=== PATIENT | female | born 1930 | race Caucasian/White ===

== ENCOUNTER 2020-05-23 02:55 | Inpatient (IN) | payer OTHER, MEDICARE ==
[2020-05-23 03:05] VITALS: BMI 20.5
[2020-05-23 03:50] LABS: BASO % 0.5 % (0-2.0); EOS % 0.9 % (0-4.5); HEMATOCRIT 38.7 % (32.4-45.2); HEMOGLOBIN 12.9 GM/dL (10.7-15.3); LYMPH % 11.7 % (8-40); MCH 30.2 pg (25.7-33.7); MCHC 33.4 g/dl (32.0-36.0); MEAN CELL VOLUME 90.3 fl (80-96); MEAN PLT VOLUME 7.9 fl (7.5-11.1); MONO % 5.7 % (3.8-10.2); NEUT % 81.2 % (42.8-82.8); PLATELET COUNT 187 K/MM3 (134-434); RBC 4.29 M/mm3 (3.60-5.2); RDW 13.7 % (11.6-15.6); WHITE BLOOD COUNT 9.5 K/mm3 (4.0-10.0)
[2020-05-23 04:09] LABS: INR 0.93 (0.83-1.09); PROTHROMBIN TIME (PATIENT) 11.5 SEC (9.7-13.0)
[2020-05-23 04:11] LABS: POTASSIUM 4.3 mmol/L (3.5-5.1)
[2020-05-23 04:12] LABS: ACTIVATED PTT 26.1 SECONDS (25.2-36.5)
[2020-05-23 04:14] LABS: ALBUMIN 3.3 g/dl (3.4-5.0); BLOOD UREA NITROGEN 23.4 mg/dL (7-18); CALCIUM 8.8 mg/dL (8.5-10.1)
[2020-05-23 04:17] LABS: CREATININE 0.7 mg/dL (0.55-1.3)
[2020-05-23 04:19] LABS: BILIRUBIN,TOTAL 0.4 mg/dL (0.2-1); TOT PROT 6.7 g/dl (6.4-8.2)
[2020-05-23] MEDS ORDERED: LACTATED RINGERS SOLUTION 1000 ML INFUS.BAG IV ONE (05:46)
[2020-05-23] MEDS ORDERED: PIPERACILLIN/TAZOB 3.375 GM 3.375 GM in DEXTROSE 5%-WATER - 50 ML IVPB ONE (05:53)
[2020-05-23] MEDS ORDERED: PIPERACILLIN/TAZOB 3.375 GM 3.375 GM/50 ML BAG IVPB ONE (06:19)
[2020-05-23] MEDS ORDERED: ONDANSETRON 4 MG/2 ML VIAL IVPUSH ONE (06:31)
[2020-05-23] MEDS ORDERED: ONDANSETRON 4 MG/2 ML VIAL ONE (06:31)
[2020-05-23] MEDS ORDERED: ACETAMINOPHEN 1000 MG/100 ML VIAL (NON FORMULARY) IVPB ONE (08:16)
[2020-05-23] MEDS ORDERED: ACETAMINOPHEN INJECTION 100 ML IVPB ONE (08:17)
[2020-05-23] MEDS ORDERED: MAGNESIUM SULF 50% (8.12 MEQ/2 ML-1 GM VIAL) IVPB ONE (08:49)
[2020-05-23 09:03] LABS: BASO % 0.2 % (0-2.0); HEMATOCRIT 36.5 % (32.4-45.2); HEMOGLOBIN 12.1 GM/dL (10.7-15.3); LYMPH % 6.4 % (8-40); MCHC 33.3 g/dl (32.0-36.0); MEAN CELL VOLUME 90.1 fl (80-96); MEAN PLT VOLUME 8.3 fl (7.5-11.1); MONO % 6.5 % (3.8-10.2); NEUT % 86.9 % (42.8-82.8); PLATELET COUNT 182 K/MM3 (134-434); RBC 4.05 M/mm3 (3.60-5.2); RDW 13.7 % (11.6-15.6); WHITE BLOOD COUNT 11.3 K/mm3 (4.0-10.0)
[2020-05-23] MEDS ORDERED: MAGNESIUM 1GM/D5W - 1 GM/100 ML IVPB IVPB ONE (09:14)
[2020-05-23 09:26] LABS: CHLORIDE 105 mmol/L (98-107); POTASSIUM 3.5 mmol/L (3.5-5.1); SODIUM 141 mmol/L (136-145)
[2020-05-23 09:28] LABS: ALBUMIN 3.2 g/dl (3.4-5.0); ANION GAP 5 MMOL/L (8-16); BLOOD UREA NITROGEN 17.9 mg/dL (7-18); CALCIUM 8.1 mg/dL (8.5-10.1); CO2 30 mmol/L (21-32); GLUCOSE,RANDOM 114 mg/dL (74-106)
[2020-05-23 09:32] LABS: CREATININE 0.6 mg/dL (0.55-1.3); SGPT/ALT 19 U/L (13-61)
[2020-05-23 09:34] LABS: ALK PHOS 93 U/L (45-117); BILIRUBIN,TOTAL 0.5 mg/dL (0.2-1); TOT PROT 6.1 g/dl (6.4-8.2)
[2020-05-23 09:35] LABS: SGOT/AST 21 U/L (15-37)
[2020-05-23 10:19] LABS: LDH 198 U/L (84-246)
[2020-05-23] MEDS: LACTATED RINGERS SOLUTION 1,000 ML/1,000 ML INFUS.BAG IV SCH (10:50)
[2020-05-23] MEDS: ZINC SULFATE 220 MG CAPSULE (FP) PO SCH ×2 (11:45→11:47)
[2020-05-23] MEDS: ASCORBIC ACID 500 MG TABLET (FP) PO SCH ×2 (11:45→23:13)
[2020-05-23] MEDS ORDERED: PIPERACILLIN/TAZOBACTAM 3.375 GM VIAL IVPB ONE ×2 (13:05→17:04)
[2020-05-23] MEDS ORDERED: DEXTROSE 5%-WATER - 50 ML IVPB ONE ×2 (13:05→17:04)
[2020-05-23] MEDS: PIPERACILLIN/TAZOB 3.375 GM 3.375 GM in DEXTROSE 5%-WATER - 50 ML IVPB SCH ×2 (13:13→17:23)
[2020-05-23] MEDS: CHOLECALCIFEROL (VIT D3) 1,000 UNIT (25 MCG) TABLET PO SCH (17:51)
[2020-05-23] MEDS ORDERED: PIPERACILLIN/TAZOB 3.375 GM 3.375 GM in DEXTROSE 5%-WATER - 50 ML IVPB SCH (18:00)
[2020-05-24] MEDS: PIPERACILLIN/TAZOB 3.375 GM 3.375 GM in DEXTROSE 5%-WATER - 50 ML IVPB SCH ×3 (02:00→17:53)
[2020-05-24] MEDS ORDERED: DEXTROSE 5%-WATER - 50 ML IVPB ONE ×3 (02:24→17:48)
[2020-05-24] MEDS ORDERED: PIPERACILLIN/TAZOBACTAM 3.375 GM VIAL IVPB ONE ×3 (02:24→17:48)
[2020-05-24 08:54] LABS: BASO % 0.7 % (0-2.0); HEMATOCRIT 34.3 % (32.4-45.2); HEMOGLOBIN 11.7 GM/dL (10.7-15.3); LYMPH % 27.6 % (8-40); MCH 30.4 pg (25.7-33.7); MCHC 34.1 g/dl (32.0-36.0); MEAN CELL VOLUME 89.2 fl (80-96); MONO % 9.3 % (3.8-10.2); NEUT % 60.4 % (42.8-82.8); PLATELET COUNT 183 K/MM3 (134-434); RBC 3.85 M/mm3 (3.60-5.2); WHITE BLOOD COUNT 5.6 K/mm3 (4.0-10.0)
[2020-05-24 09:04] LABS: POTASSIUM 4.4 mmol/L (3.5-5.1)
[2020-05-24 09:28] LABS: ALBUMIN 2.8 g/dl (3.4-5.0); BLOOD UREA NITROGEN 13.1 mg/dL (7-18); CALCIUM 8.4 mg/dL (8.5-10.1)
[2020-05-24 09:31] LABS: CREATININE 0.7 mg/dL (0.55-1.3)
[2020-05-24 09:33] LABS: BILIRUBIN,TOTAL 0.7 mg/dL (0.2-1); TOT PROT 5.7 g/dl (6.4-8.2)
[2020-05-24] MEDS: CHOLECALCIFEROL (VIT D3) 1,000 UNIT (25 MCG) TABLET PO SCH (09:34)
[2020-05-24] MEDS: ASCORBIC ACID 500 MG TABLET (FP) PO SCH ×2 (09:34→22:00)
[2020-05-24] MEDS: LACTATED RINGERS SOLUTION 1,000 ML/1,000 ML INFUS.BAG IV SCH (09:34)
[2020-05-24] MEDS: ZINC SULFATE 220 MG CAPSULE (FP) PO SCH ×2 (09:34→09:46)
[2020-05-24] MEDS: PANTOPRAZOLE 40 MG TABLET PO SCH (13:34)
[2020-05-24] MEDS: POLYETHYLENE GLYCOL 3350 119 GM BTL PO SCH (21:59)
[2020-05-25] MEDS ORDERED: PIPERACILLIN/TAZOBACTAM 3.375 GM VIAL IVPB ONE (01:04)
[2020-05-25] MEDS ORDERED: DEXTROSE 5%-WATER - 50 ML IVPB ONE (01:04)
[2020-05-25] MEDS: PIPERACILLIN/TAZOB 3.375 GM 3.375 GM in DEXTROSE 5%-WATER - 50 ML IVPB SCH (01:22)
[2020-05-25 07:27] LABS: BASO % 0.4 % (0-2.0)
[2020-05-25 07:34] LABS: BLOOD UREA NITROGEN 8.4 mg/dL (7-18); MAGNESIUM 2.7 mg/dL (1.8-2.4)
[2020-05-25 07:37] LABS: CREATININE 0.8 mg/dL (0.55-1.3)
[2020-05-25 07:39] LABS: BILIRUBIN,TOTAL 0.7 mg/dL (0.2-1); TOT PROT 7.3 g/dl (6.4-8.2)
[2020-05-25 07:48] LABS: ALBUMIN 3.7 g/dl (3.4-5.0)
[2020-05-25 08:32] LABS: HEMATOCRIT 41.1 % (32.4-45.2); HEMOGLOBIN 13.6 GM/dL (10.7-15.3); MCH 29.7 pg (25.7-33.7); MCHC 33.2 g/dl (32.0-36.0); MEAN CELL VOLUME 89.4 fl (80-96); MEAN PLT VOLUME 8.4 fl (7.5-11.1); PLATELET COUNT 212 K/MM3 (134-434); RBC 4.59 M/mm3 (3.60-5.2); WHITE BLOOD COUNT 6.4 K/mm3 (4.0-10.0)
[2020-05-25 08:33] LABS: EOS % 2.1 % (0-4.5); MONO % 7.7 % (3.8-10.2); NEUT % 70.8 % (42.8-82.8)
[2020-05-25] MEDS: AMOX TR/POT CLAV 500MG/125MG TABLETS (FP) PO SCH ×2 (09:33→17:24)
[2020-05-25] MEDS: ASCORBIC ACID 500 MG TABLET (FP) PO SCH (09:33)
[2020-05-25] MEDS: ZINC SULFATE 220 MG CAPSULE (FP) PO SCH (09:34)
[2020-05-25] MEDS: PANTOPRAZOLE 40 MG TABLET PO SCH (09:34)
[2020-05-25] MEDS: CHOLECALCIFEROL (VIT D3) 1,000 UNIT (25 MCG) TABLET PO SCH (09:34)
[2020-05-25] MEDS: POLYETHYLENE GLYCOL 3350 119 GM BTL PO SCH (09:35)
[2020-05-25 16:15] VITALS: BP 135/68; PULSE 85; TEMP 98.2
== END 2020-05-25 18:47 | disposition home or self-care (01) | DRG 377 ==
LOC: JER 02:55 → JERBED 06:26 → J4W 10:57
PROVIDERS: ATTEND Internal Medicine
DX: K62.5 Hemorrhage of anus and rectum (principal); U07.1 COVID-19; A08.39 Other viral enteritis; I69.354 Hemiplegia and hemiparesis following cerebral infarction affecting left non-dominant side; R10.9 Unspecified abdominal pain; K64.9 Unspecified hemorrhoids; K57.30 Diverticulosis of large intestine without perforation or abscess without bleeding; K59.09 Other constipation; K44.9 Diaphragmatic hernia without obstruction or gangrene; K21.9 Gastro-esophageal reflux disease without esophagitis; E78.5 Hyperlipidemia, unspecified; Z86.010 Personal history of colon polyps
CPT/HCPCS: 36415; 71045-TC-FY; 74176-TC; 80053; 82272; 82550; 82728; 83605; 83615; 83690; 83735; 84100; 84484; 85025; 85379; 85610; 85730; 86140; 86769; 93005; 93010; 94010; 97116-GP; 97161-GP; 99285-25; C9803; J0131; U0003